=== PATIENT | female | born 1950 | race Caucasian/White ===

== ENCOUNTER 2018-07-25 00:08 | Outpatient (CLI) | payer MEDICARE, OTHER, SELFPAY ==
--- NOTE | 2018-07-25 10:00 | DI.MAMMO_ITS ---
SYMPTOM/DIAGNOSIS: SCREENING, PERSONAL H/O BREAST CA, Z85.3 MAMMOGRAMS: Mammograms were interpreted according to the usual protocol including computer analysis with CAD system, tomosynthesis and C view imaging. The patient has a history of right breast cancer. Comparison is made with exams from [id number]. Scarring is again noted in the upper outer quadrant of the right breast. Spot compression views were performed of the upper outer quadrant. Stable scarring is seen. No suspicious masses or suspicious microcalcifications are seen in either breast. There has been no change in either breast. The breasts are composed of scattered fibroglandular densities, breast density, Category B. IMPRESSION: Category 2B, negative mammogram with benign findings. Yearly screening mammography is recommended. SA ASSESSMENT OF FINDINGS: Negative with benign findings. Category 2. Patient will receive a letter notifying them of these results. BI-RADS category B. There are scattered areas of fibroglandular density.
== END 2018-07-25 00:28 ==
PROVIDERS: PCP Family Medicine; Visit Provider Family Medicine
DX: Z85.3 Personal history of malignant neoplasm of breast (principal); Z12.31 Encounter for screening mammogram for malignant neoplasm of breast
CPT/HCPCS: 77063; 77067

== ENCOUNTER 2018-07-25 09:14 | Outpatient (REF) | payer MEDICARE, OTHER, SELFPAY ==
[2018-07-25 13:38] LABS: HCT 43.5 % (36.0-46.0); HGB 14.9 g/dL (12.0-15.5); Mean Corp. HGB Concentration 34.3 g/dL (32.0-36.0); Mean Corpuscular Hemoglobin 32.7 pg (27.0-33.0); Mean Corpuscular Volume 95.6 fL (80-95); Mean Platelet Volume 11.7 fL (8.0-11.0); Platelet Count 194 x1000/uL (130-400); RBC 4.55 m/cumm (4.00-5.20); RBC Distribution Width 12.9 % (11.7-14.6); White Blood Cell Count 5.36 k/cumm (4.4-10.8)
[2018-07-25 13:46] LABS: Anion Gap 4.8 mmol/L (3-11); BUN 15 mg/dL (7-18); CO2 33.2 mmol/L (21.0-32.0); CREATININE 0.76 mg/dL (0.55-1.02); Calcium 8.9 mg/dL (8.5-10.1); Chloride 106 mmol/L (98-107); Glucose 90 mg/dL (70-100); Potassium 3.8 mmol/L (3.5-5.1); Sodium 144 mmol/L (136-145)
== END 2018-07-25 09:34 ==
LOC: NCHCN 09:14
PROVIDERS: PCP Family Medicine; Visit Provider Family Medicine
DX: Z85.3 Personal history of malignant neoplasm of breast (principal)
CPT/HCPCS: 80048; 85027

== ENCOUNTER 2019-07-26 00:52 | Outpatient (CLI) | payer MEDICARE, OTHER, SELFPAY ==
[2019-07-26 13:25] LABS: HCT 44.5 % (36.0-46.0); HGB 15.1 g/dL (12.0-15.5); Mean Corp. HGB Concentration 33.9 g/dL (32.0-36.0); Mean Corpuscular Hemoglobin 32.5 pg (27.0-33.0); Mean Corpuscular Volume 95.7 fL (80-95); Mean Platelet Volume 11.9 fL (8.0-11.0); Platelet Count 210 x1000/uL (130-400); RBC 4.65 m/cumm (4.00-5.20); RBC Distribution Width 13.2 % (11.7-14.6); White Blood Cell Count 5.95 k/cumm (4.4-10.8)
[2019-07-26 13:34] LABS: ALT 32 U/L (14-59); AST 25 U/L (15-37); Albumin 3.6 g/dL (3.4-5.0); Alkaline Phosphatase 69 U/L (46-116); Anion Gap 1.6 mmol/L (3-11); BUN 15 mg/dL (7-18); Bilirubin, Total 0.6 mg/dL (0.2-1.0); CO2 35.4 mmol/L (21.0-32.0); Calcium 9.1 mg/dL (8.5-10.1); Chloride 106 mmol/L (98-107); Glucose 103 mg/dL (74-106); Sodium 143 mmol/L (136-145); Total Protein 7.2 g/dL (6.4-8.2)
--- NOTE | 2019-07-26 13:45 | DI.MAMMO_ITS ---
EXAM: MG MAMMO SCREENING 60 MIN DUR CLINICAL HISTORY: SCREENING, H/O BREAST CA, TAMOXIFEN X 5 YEARS, Z85.3. TECHNIQUE: Full field digital CC and MLO mammographic images were obtained with 3D tomosynthesis and utilizing computer aided detection (CAD). COMPARISON: . 2009 through 2018. FINDINGS: Breast Density - Category B - Scattered areas of fibroglandular density Right breast: Patient is again noted to be status post lumpectomy and radiation. Mild breast scarrin g is noted. No suspicious masses or suspicious microcalcifications are seen. There has been no sign ificant change. Left breast: Masses/Architectural Distortion: None seen. Microcalcifications: No suspicious pleomorphic-type calcifications are seen. Skin Thickening/Nipple Retraction: None. Axilla: Unremarkable. IMPRESSION: 1. BI-RADS Cat 2 - Benign Findings. No significant interval change with no specific features of sana gnancy noted. 2. Unless there is more urgent need, screening mammography is recommended, as per [place] guidelines. A negative radiographic report should not delay biopsy if a dominant or clinically suspicious mass is present. Up to ten percent of cancers are not identified on mammography. A negative report may reinforce clinical impression. Adenosis and dense breasts may obscure an underlying neoplasm. False positive reports average 6 to 10%. Patient will receive a letter notifying them of these results.
== END 2019-07-26 01:12 ==
PROVIDERS: PCP Family Medicine; Visit Provider Family Medicine
DX: Z12.31 Encounter for screening mammogram for malignant neoplasm of breast (principal); Z85.3 Personal history of malignant neoplasm of breast; Z92.3 Personal history of irradiation; Z79.899 Other long term (current) drug therapy
CPT/HCPCS: 77063; 77067; 80053; 85027

== ENCOUNTER 2019-08-27 21:51 | Outpatient (REF) | payer MEDICARE, OTHER, SELFPAY ==
--- NOTE | 2019-08-27 14:52 | SKI_PTH ---
PATIENT: Loli May LOC: N U#:[id number] AGE/SX: 68/F ROOM: RE08/27/[address]: Rich Rizvi DO : 1950 BED: DIS: 08/27/2019 SPEC #: [id number] RECD: 08/28/19 11:37 STATUS: SHARRI REQ #: [id number] BACILIO: 08/27/19 14:[address]: Rich Rizvi DEPT: Surgical Specimen RECD BY: Melvina Lewis ENTERED: 08/28/19 11:38 SP TYPE: HAIR BALLARD DR: Yue Parham Tissues: 1 - SKIN BIOPSY(SHAVE/PUNCH) Procedures: SKIN LEVEL 4 Comments: [id number]
== END 2019-08-27 22:11 ==
LOC: LBN 21:51
PROVIDERS: PCP Family Medicine; Visit Provider Otolaryngology Otolaryngology/Facial Plastic Surgery
DX: L57.0 Actinic keratosis (principal)
CPT/HCPCS: 88305

== ENCOUNTER 2020-07-31 13:55 | Outpatient (REF) | payer MEDICARE, OTHER, SELFPAY ==
[2020-07-31 15:57] LABS: Abs Immature Grans 0.01 10^3/uL (0.0-0.06); Absolute Basophil Count 0.06 10^3/uL (0.0-0.2); Absolute Eosinophil Count 0.24 10^3/uL (0.0-0.7); Absolute Lymphocyte Count 1.75 10^3/uL (1.2-3.4); Absolute Monocyte Count 0.45 10^3/uL (0.1-0.8); Absolute Neutrophil Count 3.94 10^3/uL (1.2-6.7); Basophils % 0.9; Eosinophils % 3.7; HCT 43.7 % (36.0-46.0); HGB 14.8 g/dL (11.2-15.7); Immature Grans % 0.2; Lymphocytes % 27.1; MCH 33.3 pg (27.0-33.0); MCHC 33.9 % (32.0-36.0); MCV 98.4 fL (80-95); MPV 11.3 fL (8.0-11.0); Neutrophils % 61.1; Nucleated RBC 0 %; Platelet Count 224 10^3/uL (130-400); RBC 4.44 10^6/uL (3.93-5.22); RDW 12.7 % (11.7-14.6); RDW-SD 45.1 fL; WBC 6.45 10^3/uL (4.4-10.8)
[2020-07-31 16:14] LABS: ALT 42 U/L (14-59); AST 34 U/L (15-37); Albumin 3.7 g/dL (3.4-5.0); Alkaline Phosphatase 77 U/L (46-116); Anion Gap 3.9 mmol/L (3-11); BUN 16 mg/dL (7-18); Bilirubin, Total 0.7 mg/dL (0.2-1.0); CO2 33.1 mmol/L (21.0-32.0); Chloride 107 mmol/L (98-107); Glucose 105 mg/dL (74-106); Potassium 4.1 mmol/L (3.5-5.1); Sodium 144 mmol/L (136-145); Total Protein 7.4 g/dL (6.4-8.2)
[2020-07-31 16:35] LABS: Hemoglobin A1C 4.9 % (<5.7)
== END 2020-07-31 14:15 ==
LOC: NCHCN 13:55
PROVIDERS: PCP Family Medicine; Visit Provider Family Medicine
DX: R73.01 Impaired fasting glucose (principal); Z85.3 Personal history of malignant neoplasm of breast
CPT/HCPCS: 80053; 83036; 85025

== ENCOUNTER 2020-08-28 01:13 | Outpatient (CLI) | payer MEDICARE, OTHER, SELFPAY ==
--- NOTE | 2020-08-28 09:24 | DI.MAMMO_ITS ---
EXAM: MG MAMMO SCREENING 60 MIN DUR CLINICAL HISTORY: SCREENING,Z85.3,PERSONAL H/O BREAST CA,ON TAMOXIFEN. TECHNIQUE: Bilateral full field digital CC and MLO mammographic images were obtained with 3D tomosyn thesis and utilizing computer aided detection (CAD). COMPARISON: Prior mammograms dating back to 2010, the most recent being July 2019. This patient went remote right lumpectomy with radiation therapy over 20 years ago. FINDINGS: Postlumpectomy changes in the right breast remain stable. No new right breast findings. The also no new significant left breast findings. There are no spiculated masses nor malignant appearing microcalcification groups. There is no signif icant architectural distortion nor skin thickening-retraction. IMPRESSION: No radiographic evidence of malignancy. Stable post lumpectomy changes in the right breast again note d BI-RADS Category 2 - Benign Findings Breast Density - Category B - Scattered areas of fibroglandular density Breast density Category C or D implies that the patient has dense breast tissue. Dense breast tissue can make it harder to find cancer on a mammogram. Dense breast tissue is also associated with an incr eased risk of breast cancer. This information about the result of the mammogram report was provided to the patient to raise their awareness. Use this report when you speak with the patient about their risks for breast cancer, which includes their family history. At that time, you may recommend additional screening tests (Ultrasoun d or MRI) as these tests may add significant information. A negative radiographic report should not delay biopsy if a dominant or clinically suspicious mass is present. Up to ten percent of cancers are not identified on mammography. A negative report may reinforce clinical impression. Adenosis and dense breasts may obscure an underlying neoplasm. False positive reports average 6 to 10%. Patient will receive a letter notifying them of these results.
== END 2020-08-28 01:14 ==
LOC: DI 01:13
PROVIDERS: PCP Family Medicine; Visit Provider Family Medicine
DX: Z12.31 Encounter for screening mammogram for malignant neoplasm of breast (principal); Z85.3 Personal history of malignant neoplasm of breast
CPT/HCPCS: 77063; 77067

== ENCOUNTER 2021-04-01 10:03 | Outpatient (REF) | payer MEDICARE, SELFPAY ==
[2021-04-01 14:58] LABS: ALT 37 U/L (14-59); AST 25 U/L (15-37); Alkaline Phosphatase 70 U/L (46-116); Anion Gap 8.2 mmol/L (3-11); BUN 14 mg/dL (7-18); Bilirubin, Total 0.8 mg/dL (0.2-1.0); CO2 30.8 mmol/L (21.0-32.0); CREATININE 0.8 mg/dL (0.55-1.02); Calcium 9.2 mg/dL (8.5-10.1); Chloride 104 mmol/L (98-107); Folate 6.4 ng/mL (8.6-20.0); Glucose 105 mg/dL (74-106); Sodium 143 mmol/L (136-145); TSH (W/Ref FT4) 1.73 uIU/mL (0.36-3.74); Total Protein 7.9 g/dL (6.4-8.2); Vitamin B12 322 pg/mL (193-986)
[2021-04-02 10:10] LABS: Syphilis Serology (RPR) Negative (Negative)
== END 2021-04-01 10:04 | disposition home or self-care (01) ==
LOC: NCHCN 10:03
PROVIDERS: PCP Family Medicine; Visit Provider Family Medicine
DX: R41.3 Other amnesia (principal)
CPT/HCPCS: 80053; 82607; 82746; 84443; 86592

== ENCOUNTER 2021-04-15 01:39 | Outpatient (CLI) | payer MEDICARE, SELFPAY ==
--- NOTE | 2021-04-15 10:10 | DI.MRI_ITS ---
Exam(s) MR BRAIN WO EXAM: MR BRAIN WO CLINICAL HISTORY: MEMORY DEFICIT,R41.3 TECHNIQUE: Multiplanar multisequence MRI of the brain was performed. COMPARISON: No exams were available for comparison FINDINGS: VENTRICLES AND EXTRA AXIAL SPACES: Normal in size and morphology for the patient's age. MIDLINE SHIFT: None. CEREBRAL PARENCHYMA: No focus of restricted diffusion to suggest acute infarct. No space-occupying le ashley identified. There are areas of T2 hyperintensity in the white matter on the FLAIR and T2 weighte d images most consistent with chronic microvascular ischemic disease. HEMORRHAGE: None. BRAINSTEM/CEREBELLUM: Normal. CALVARIUM: Normal. VISUALIZED PARANASAL SINUSES/MASTOIDS:Clear. [place]: Normal flow void. PITUITARY GLAND: Unremarkable. OTHER FINDINGS: None. IMPRESSION: Age-related cerebral atrophy and small vessel ischemic disease. DATA REPOSITORY:
== END 2021-04-15 01:59 ==
PROVIDERS: PCP Family Medicine; Visit Provider Family Medicine
DX: R41.3 Other amnesia (principal); G31.1 Senile degeneration of brain, not elsewhere classified
CPT/HCPCS: 70551

== ENCOUNTER 2021-05-27 13:42 | Outpatient (REF) | payer MEDICARE, OTHER, SELFPAY ==
[2021-05-27 14:44] LABS: HCT 41.6 % (36.0-46.0); HGB 14.8 g/dL (11.2-15.7); MCH 34.6 pg (27.0-33.0); MCHC 35.6 % (32.0-36.0); MCV 97.2 fL (80-95); MPV 11.5 fL (8.0-11.0); Platelet Count 208 10^3/uL (130-400); RBC 4.28 10^6/uL (3.93-5.22); RDW 12.2 % (11.7-14.6); RDW-SD 42.2 fL; WBC 6.08 10^3/uL (4.4-10.8)
[2021-05-27 15:03] LABS: Hemoglobin A1C 4.9 % (<5.7)
[2021-05-27 15:26] LABS: BUN 12 mg/dL (7-18); CREATININE 0.7 mg/dL (0.55-1.02); Calcium 9.2 mg/dL (8.5-10.1); Chloride 105 mmol/L (98-107); Folate > 20.0 ng/mL (8.6-20.0); Glucose 109 mg/dL (74-106); Potassium 3.8 mmol/L (3.5-5.1); Sodium 145 mmol/L (136-145); Vitamin B12 632 pg/mL (193-986)
== END 2021-05-27 13:43 | disposition home or self-care (01) ==
LOC: NCHCN 13:42
PROVIDERS: PCP Family Medicine; Visit Provider Family Medicine
DX: R73.03 Prediabetes (principal); D53.1 Other megaloblastic anemias, not elsewhere classified; Z85.3 Personal history of malignant neoplasm of breast
CPT/HCPCS: 80048; 85027; 82607; 82746; 83036

== ENCOUNTER → 2021-09-10 08:32 | Outpatient (BNVA) | payer MEDICARE, OTHER, SELFPAY | PROVIDERS: PCP Family Medicine; Referring Provider Family Medicine; Visit Provider Nurse Practitioner Adult Health | DX: R41.89 Other symptoms and signs involving cognitive functions and awareness (principal) | CPT/HCPCS: 99204 ==

== ENCOUNTER → 2021-09-24 14:01 | Outpatient (BNVA) | payer MEDICARE, OTHER, SELFPAY | PROVIDERS: PCP Family Medicine; Referring Provider Family Medicine; Visit Provider Nurse Practitioner Adult Health | DX: G30.9 Alzheimer's disease, unspecified (principal); F02.80 Dementia in other diseases classified elsewhere, unspecified severity, without behavioral disturbance, psychotic disturbance, mood disturbance, and anxiety | CPT/HCPCS: 99213; 99214 ==

== ENCOUNTER 2021-10-01 02:26 | Outpatient (CLI) | payer MEDICARE, OTHER, SELFPAY ==
--- NOTE | 2021-10-01 | DI.MAMMO_ITS ---
Exam(s) MG MAMMO SCREENING 60 MIN DUR EXAM: MG MAMMO SCREENING 60 MIN DUR CLINICAL HISTORY: HX OF BREAST CA, XRT, TAMOXIFEN X 5 YRS, Z85.3 TECHNIQUE: Bilateral full field digital CC and MLO mammographic images were obtained with 3D tomosyn thesis and utilizing computer aided detection (CAD). COMPARISON: Available for comparison. FINDINGS: Masses/Architectural Distortion: None seen. Lumpectomy changes are again seen in the right breast. Microcalcifications: No suspicious pleomorphic-type are seen. Skin Thickening/Nipple Retraction: None. IMPRESSION: 1. No significant interval change with no specific features of malignancy noted. 2. Unless there is more urgent need, screening mammography is recommended, as per [employer] guidelines. 3. Findings were discussed with the patient on the date of the examination. BI-RADS Category 2 - Benign Findings Breast Density - Category B - Scattered areas of fibroglandular density Breast density category C or D implies that the patient has dense breast tissue. Dense breast tissue is very common and is not abnormal but dense breast tissue can make it harder to find cancer on a ma mmogram. Also, dense breast tissue may increase their breast cancer risk. This information about the result of the mammogram report was provided to the patient to raise their awareness. Use this report when you speak with the patient about their risks for breast cancer, which includes their family hist ory. At that time, you may recommend for more screening tests (Ultrasound or MRI) as they might be us eful based on their risk. A negative radiographic report should not delay biopsy if a dominant or clinically suspicious mass is present. Up to ten percent of cancers are not identified on mammography. A negative report may reinforce clinical impression. Adenosis and dense breasts may obscure an underlying neoplasm. False positive reports average 6 to 10%. Patient will receive a letter notifying them of these results.
--- NOTE | 2021-10-01 | DI.DEXA_ITS ---
Exam(s) XR DEXA BONE DENSITY W/WO NIKUNJ EXAM: XR DEXA BONE DENSITY W/WO NIKUNJ CLINICAL HISTORY: HX OF BREAST CA, XRT, TAMOXIFEN X 5 YRS, POSTMENOPAUSAL SCREENING, Z78.0 TECHNIQUE: COMPARISON: Comparison examination is 08/23/2017. FINDINGS: Lateral Spine Image: Unremarkable. No compression deformities identified. Left hip: Total T-Score: -2.4. This compares to -1.9 on the prior examination. Total Z-Score: -0.8 T- and Z-scores: Findings are consistent with osteopenia. Osteoporosis is seen in the femoral neck w ith a T-score of -2.5. Lumbar Spine: Total T-Score: 0.4. This compares to 0.2 on the prior examination. Total Z-Score: 2.5 T- and Z-scores: Within normal limits. IMPRESSION: Osteoporosis seen in the left femoral neck.
== END 2021-10-01 02:46 ==
PROVIDERS: PCP Family Medicine; Visit Provider Family Medicine
DX: Z78.0 Asymptomatic menopausal state (principal); Z13.820 Encounter for screening for osteoporosis; M81.0 Age-related osteoporosis without current pathological fracture
CPT/HCPCS: 77063; 77067; 77080

== ENCOUNTER 2021-10-08 17:56 | Outpatient (REF) | payer MEDICARE, OTHER, SELFPAY ==
[2021-10-08 13:48] LABS: PHOSPHORUS 3.9 mg/dL (2.6-4.7)
[2021-10-08 15:02] LABS: Vitamin D 25 Total 33.9 ng/mL (30-100)
[2021-10-09 09:40] LABS: Parathyroid Hormone,Intact 56 pg/mL (19-88)
[2021-10-09 10:08] LABS: Hepatitis C Ab w Rflx HCV PCR Reactive (Negative)
[2021-10-12 12:37] LABS: HCV RNA Detection Quantitative 2020000 IU/mL (Undetected); HCV RNA Qualitative Detected (Undetected)
== END 2021-10-08 17:57 | disposition home or self-care (01) ==
LOC: NCHCN 17:56
PROVIDERS: PCP Family Medicine; Visit Provider Family Medicine
DX: M81.0 Age-related osteoporosis without current pathological fracture (principal); Z11.59 Encounter for screening for other viral diseases
CPT/HCPCS: 82306; 86803; 87522; 83970; 84100

== ENCOUNTER 2021-10-20 18:53 | Outpatient (REF) | payer MEDICARE, OTHER, SELFPAY ==
[2021-10-22 09:32] LABS: HBs Antibody, Quant 7.1 mIU/mL (See Note); Hepatitis B Surface Ab Negative (See Note)
[2021-10-22 09:45] LABS: Hepatitis B Surface Ag Negative (Negative)
[2021-10-22 10:13] LABS: Hep B Core Antibody Negative (Negative)
[2021-10-22 10:16] LABS: HIV-1/2 Ag & Ab Screen Negative (Negative)
[2021-10-22 10:20] LABS: Hep A Total Ab w Rflx IgM Negative (Negative)
[2021-10-23 09:26] LABS: ALT 27 U/L (7-45); ActiTest Grade A0; ActiTest Interpretation no activity; ActiTest Score 0.16; Alpha-2-Macroglobulin 368 mg/dL (100 - 280); Apoliprotein A1 202 mg/dL (>=140); Bilirubin, Total 0.8 mg/dL (<=1.2); FibroTest Interpretation moderate fibrosis; FibroTest Stage F2; GGT 39 U/L (5 - 36); Haptoglobin 134 mg/dL (30 - 200)
[2021-10-24 17:28] LABS: HCV Genotype 1a (Undetected)
== END 2021-10-20 18:54 | disposition home or self-care (01) ==
LOC: NCHCN 18:53
PROVIDERS: PCP Family Medicine; Visit Provider Family Medicine
DX: B19.20 Unspecified viral hepatitis C without hepatic coma (principal); Z11.4 Encounter for screening for human immunodeficiency virus [HIV]
CPT/HCPCS: 81596; 86704; 86706; 86709; 87340; 87389; 87521

== ENCOUNTER 2021-11-04 19:11 | Outpatient (REF) | payer MEDICARE, OTHER, SELFPAY ==
[2021-11-04 13:50] LABS: HCT 41.4 % (36.0-46.0); HGB 14.8 g/dL (11.2-15.7); MCH 35.7 pg (27.0-33.0); MCHC 35.7 % (32.0-36.0); MCV 99.8 fL (80-95); MPV 11.4 fL (8.0-11.0); Platelet Count 191 10^3/uL (130-400); RBC 4.15 10^6/uL (3.93-5.22); RDW 12.9 % (11.7-14.6); RDW-SD 42.8 fL; WBC 6.58 10^3/uL (4.4-10.8)
[2021-11-04 14:01] LABS: ALT 35 U/L (14-59); AST 27 U/L (15-37); Albumin 3.8 g/dL (3.4-5.0); Alkaline Phosphatase 70 U/L (46-116); Anion Gap 6.1 mmol/L (3-11); BUN 13 mg/dL (7-18); Bilirubin, Total 0.7 mg/dL (0.2-1.0); CO2 29.9 mmol/L (21.0-32.0); CREATININE 0.7 mg/dL (0.55-1.02); Chloride 104 mmol/L (98-107); Glucose 99 mg/dL (74-106); Sodium 140 mmol/L (136-145); Total Protein 7.3 g/dL (6.4-8.2)
== END 2021-11-04 19:12 | disposition home or self-care (01) ==
LOC: NCHCN 19:11
PROVIDERS: PCP Family Medicine; Visit Provider Family Medicine
DX: B18.2 Chronic viral hepatitis C (principal)
CPT/HCPCS: 80053; 85027

== ENCOUNTER → 2021-11-09 00:58 | Outpatient (CLI) | payer MEDICARE, OTHER, SELFPAY ==
--- NOTE | 2021-11-09 | DI.US_ITS ---
Exam(s) US ABDOMEN EXAM: US ABDOMEN CLINICAL HISTORY: CHRONIC HEP C, B18.2 TECHNIQUE: Ultrasound abdomen performed using standard protocol. COMPARISON: No exams were available for comparison FINDINGS: LIVER: Normal size and overall echogenicity. There are multiple uniform hyperechoic lesions seen thr oughout the liver which are similar in size, 1-2 cm. The findings could represent multiple hemangio mas, metastatic disease or multifocal HCC. An additional simple cyst is noted measuring 3.5 cm. GALLBLADDER: No evidence of stones or sludge. No evidence of wall thickening. No pericholecystic flu id identified. CLARK'S SIGN: Negative. BILIARY SYSTEM: No intrahepatic or extrahepatic biliary ductal dilation. KIDNEYS: Kidneys are symmetric in size. No evidence of renal calculi. No evidence of hydronephrosis. No renal mass or cyst identified. PANCREAS: Normal where visualized. SPLEEN: Not enlarged. ABDOMINAL AORTA AND IVC: Visualized portions normal caliber. ASCITES: None seen. IMPRESSION: Multiple hyperechoic lesions throughout the liver may represent multiple hemangiomas, metastatic dise ase or multifocal hepatocellular carcinoma. DATA REPOSITORY:
== END ==
PROVIDERS: PCP Family Medicine; Visit Provider Family Medicine
DX: B18.2 Chronic viral hepatitis C (principal); K76.89 Other specified diseases of liver
CPT/HCPCS: 76700

== ENCOUNTER → 2021-11-24 10:59 | Outpatient (BNVA) | payer MEDICARE, OTHER, SELFPAY | PROVIDERS: PCP Family Medicine; Referring Provider Family Medicine; Visit Provider Nurse Practitioner Adult Health | DX: G30.9 Alzheimer's disease, unspecified (principal); F02.80 Dementia in other diseases classified elsewhere, unspecified severity, without behavioral disturbance, psychotic disturbance, mood disturbance, and anxiety | CPT/HCPCS: 99213; 99214 ==

== ENCOUNTER 2021-12-14 10:03 | Outpatient (REF) | payer MEDICARE, OTHER, SELFPAY ==
[2021-12-14 16:42] LABS: HCT 43.2 % (36.0-46.0); HGB 15.8 g/dL (11.2-15.7); MCHC 36.6 % (32.0-36.0); MCV 98 fL (80-95); Platelet Count 195 10^3/uL (130-400); RBC 4.39 10^6/uL (3.93-5.22); RDW 12.8 % (11.7-14.6); RDW-SD 41.3 fL; WBC 6.32 10^3/uL (4.4-10.8)
[2021-12-14 17:01] LABS: ALT 19 U/L (14-59); AST 18 U/L (15-37); Albumin 4.3 g/dL (3.4-5.0); Alkaline Phosphatase 89 U/L (46-116); Anion Gap 11.2 mmol/L (3-11); BUN 15 mg/dL (7-18); Bilirubin, Total 0.8 mg/dL (0.2-1.0); CO2 29.8 mmol/L (21.0-32.0); CREATININE 0.8 mg/dL (0.55-1.02); Calcium 9.4 mg/dL (8.5-10.1); Chloride 102 mmol/L (98-107); Glucose 104 mg/dL (74-106); Potassium 3.7 mmol/L (3.5-5.1); Sodium 143 mmol/L (136-145); Total Protein 7.9 g/dL (6.4-8.2)
[2021-12-16 14:07] LABS: HCV RNA Detection Quantitative <15 IU/mL (Undetected); HCV RNA Qualitative Detected (Undetected)
== END 2021-12-14 10:04 | disposition home or self-care (01) ==
LOC: NCHCN 10:03
PROVIDERS: PCP Family Medicine; Visit Provider Family Medicine
DX: B18.2 Chronic viral hepatitis C (principal)
CPT/HCPCS: 80053; 85027; 87522

== ENCOUNTER 2021-12-28 14:19 | Outpatient (REF) | payer MEDICARE, OTHER, SELFPAY ==
[2021-12-30 12:51] LABS: HCV RNA Qualitative Undetected (Undetected)
== END 2021-12-28 14:20 | disposition home or self-care (01) ==
LOC: NCHCN 14:19
PROVIDERS: PCP Family Medicine; Visit Provider Family Medicine
DX: B18.2 Chronic viral hepatitis C (principal)
CPT/HCPCS: 87522

== ENCOUNTER 2022-02-19 10:30 | Day surgery (SDC) | payer MEDICARE, OTHER, SELFPAY ==
[2022-02-19 10:50] VITALS: BP 145/95; PULSE 58; RESP 16; TEMP 36.6; O2SAT 99
[2022-02-19] MEDS: Tropicam./Phenyleph. (1/2.5%) 5 ML BTL OD ×3 (11:04→11:14)
--- NOTE | 2022-02-19 11:23 | W.ANESPRE ---
General Info Date of Service Date Performed: 02/19/22 Height: 5 ft 2 in Weight: 52.6 kg Body Mass Index (BMI): 21.2 Surgical Procedure: Operation Date: 02/19/22 13:40 Proposed Procedure Side Surgeon p Cataract Extraction with IOL Implant Right Francisco J Perry MD Meds Allergies and Home Medications Allergies Allergy/AdvReac Type Severity Reaction Status Date / Time No Known Allergies Allergy Verified 02/19/22 10:47 Home Medication Medication Instructions Recorded cyanocobalamin (vitamin B-12) 1,000 mcg PO DAILY 09/09/21 1,000 mcg tablet (Vitamin B-12) folic acid 1 mg tablet 1 mg PO DAILY 09/09/21 omega-3 417 mg-dha 120 mg-epa-276 cap PO 09/10/21 mg-fish oil 600 mg-tumeric capsule ([place] MonoPure Curcumin EC) vit C 250 mg-E 90 mg-zinc 40 1 tab PO QAM AND QPM 09/10/21 mg-copper 1 rz-sbhttb-vwskgo chew tablet (PreserVision AREDS-2) donepezil 10 mg tablet 10 mg PO QHS #90 tabs 11/24/21 mirtazapine 7.5 mg tablet 1 tab PO HS 02/17/22 Current Visit Medications: Current Medications Generic Name Dose Route Start Last Admin Trade Name Freq PRN Reason Stop Dose Admin Acetaminophen 1,000 mg 02/19/22 06:00 Acetaminophen 500 Mg Tab PO Q4H PRN PRN Miscellaneous Medication 0 ml 02/19/22 06:00 Prednisolone 1%, Moxifloxacin 0.5%, Nepafenac 0.1% 5ml Btl OD DIRECTED [facility] Miscellaneous Medication 0 ml 02/19/22 06:00 02/19/22 11:14 Tropicam./Phenyleph. (1/2.5%) 5 Ml Btl OD 1 drp DIRECTED CAROLE Administration Tetracaine HCl 0 ml 02/19/22 06:00 Tetracaine 0.5% 4 Ml Btl OD DIRECTED CAROLE PFSH Active Problems Active Problems: Problem Status Onset Code [place] hemangioma Q82.5 Neoplasm of unspecified behavior of bone, soft tissue, and skin D49.2 Actinic keratoses L57.0 Cognitive impairment R41.89 Alzheimer's dementia G30.9, F02.80 Medical History Medical History Anemia Vitamin B12 and folate deficiency Cataract ZULY (generalized anxiety disorder) Hepatitis C without hepatic coma s/p recent treatment, RNA in December. Repeat RNA level pending 03/2022 Hx of breast cancer Liver mass MRI pending 04/01 Osteoporosis Prediabetes Surgical History Surgical History (Updated 02/19/22 @ 10:46 by Federico Millard) History of liver biopsy Tobacco Smoking/Tobacco Use Status: Never Alcohol Alcohol Intake: current Alcohol intake frequency: 0-2 drinks per day Substance Use Substance use: Never Vital Signs and Lab Results Vital Signs Most Recent Vital Signs in EMR: Most Recent Vital Signs Temp Pulse Resp BP Pulse Ox 36.6 C 58 L 16 145/95 H 99 02/19/22 10:50 02/19/22 10:50 02/19/22 10:50 02/19/22 10:50 02/19/22 10:50 Lab Results Blood Type / Crossmatch: No Data to Display Complete Blood Count: No Data to Display Complete Metabolic Panel: No Data to Display Liver Function Panel: No Data to Display Coagulation Panel: No Data to Display Cardiac Panel: No Data to Display Arterial Blood Gas: No Data to Display Venous Blood Gas: No Data to Display Pancreas Panel: No Data to Display Thyroid Panel: No Data to Display Infectious Disease: No Data to Display Blood Cultures: No Data to Display Toxicology Panel: No Data to Display Anesthesia Assessment and Plan Anesthesia History Personal History: No History of Anesthesia Complications Family History: No Family History of Anesthesia Complications Exercise Tolerance Exercise Tolerance: Metabolic Equivalents>4 Pertinent Negatives Pertinent Negatives: No Major Cardiovascular Symptoms or Complaints, No Major Pulmonary Symptoms or Complaints and No History of CVA/TIA Cardiac & Pulmonary Exam Cardiac Exam: Normal S1/S2 Heart Sounds Pulmonary Exam: Clear Bilateral Breath Sounds Implantable Cardiac Device Does patient have a Pacemaker or an ICD?: No Airway Exam Known Difficult Airway: No Mallampati Class: 2 Mouth Opening: Normal (> 3cm) Thyromental Distance: Greater than 3 cm Neck Range of Motion: Full ROM Neck Circumference: Normal Teeth Condition: Normal Dentition ASA Classification ASA Score: ASA 2 Emergency Case?: No NPO Status NPO Status: NPO Clears >2 hours, Solids >8 hours Anesthesia Plan Resuscitation Status: Full Code Anesthesia Technique: MAC Anesthesia Airway Planned: Natural Airway Monitors Used: Standard Monitors
[2022-02-19 11:39] VITALS: BMI 21.2
[2022-02-19] MEDS: Tetracaine 0.5% 4 ML BTL OD (11:55)
[2022-02-19] MEDS: Balanced Salt Soln.-PLUS 500 ML BAG (11:58)
[2022-02-19] MEDS: Duovisc Viscoelastic System EACH 1 EACH (11:59)
[2022-02-19] MEDS: Povidone-Iodine Ophth 30 ML BTL (12:00)
[2022-02-19] MEDS: Lidocaine 2% Jelly 6 ML SYR (12:00)
[2022-02-19] MEDS: Trypan Blue 0.06% 0.5 ML SYR (12:01)
[2022-02-19 12:25] VITALS: BP 147/80; PULSE 60; RESP 16; TEMP 36.4; O2SAT 100
--- NOTE | 2022-02-19 12:26 | W.PM.DSUDISC ---
Discharge Plan Disposition Patient Disposition: HOME Condition: Good Discharge Details Attending Provider: Francisco J Perry Primary Care Provider: Yue Parham Home Meds and New Rx's Prescriptions: No Action cyanocobalamin (vitamin B-12) [Vitamin B-12] 1,000 mcg tablet 1,000 mcg PO DAILY folic acid 1 mg tablet 1 mg PO DAILY [place] MonoPure Curcumin EC 417 mg-120 mg- 276 mg-600 mg capsule PO PreserVision AREDS-2 250-90-40-1 mg tablet,chewable 1 tab PO QAM AND QPM donepezil 10 mg tablet 10 mg PO QHS Qty: 90 3RF mirtazapine 7.5 mg tablet 1 tab PO HS Label Comments: TAKE 1 TABLET BY MOUTH DAILY AT BEDTIME (TO REPLACE SERTRALINE) Discharge Instructions Stand Alone Forms: Post-op Topical Cataract, Rachele Bruce ([facility]) Discharge Orders Discharge Orders: Discharge Order (Routine); Ordered 02/19/22 Ordered By: Francisco J Perry DS: Diagnosis Discharge Diagnosis (1) Mature cataract: Status: Resolved
--- NOTE | 2022-02-19 12:27 | W.PM.OP ---
Date of service: 02/19/22 Time of Service: 12:27 Operative Note Operative Note DATE OF PROCEDURE: 02/19/22 PRE-OP DIAGNOSIS: Dense mature cataract, right eye Absent red reflex, right eye POST-OP DIAGNOSIS: same Severe generalized and localized zonular laxity. PROCEDURE: Cataract extraction using phacoemulsification with intraocular lens implantation, right eye, using capsular staining with Vision Blue Insertion of capsular tension ring SURGEON: Francisco J Perry ANESTHESIA TYPE: Local By Surgeon and MAC Refer to Anesthesia Record PATHOLOGY: none sent COMPLICATIONS: None Patient was transported to: same day Patient's condition: stable Implants: Manuel [employer] Manuel / [employer] Tecnis [id number] Morcher Type 15A capsular tension ring Indications: Progressive visual loss due to cataract, right eye Findings: Severe generalized and localized zonular laxity Procedure Description: CATARACT SURGERY OPERATIVE REPORT PREOPERATIVE DIAGNOSIS: 1. Dense mature cataract, right eye 2. Poor red reflex secondary to #1 POSTOPERATIVE DIAGNOSIS: Same OPERATION: 1. Cataract extraction using phacoemulsification with posterior chamber intraocular lens implant, right eye. 2. Capsular staining with Vision Blue 3. Insertion of Morcher Type 15A capsular tension ring IOL: IOL Tour Conductor/Model: Manuel & Manuel / JANETH Tecnis [id number] IOL Power: + 20.5 diopters IOL Serial Number: [id number] Optic Diameter: 6.0mm Haptic/Overall Diameter: 13.0mm PHACO INFO: Nadir [employer]ion Vision System with OZil and Active Fluidics Cumulative Dispersed Energy (CDE): 30.28 seconds SURGEON: Francisco J Perry MD, JUSTEN ANESTHESIA: Monitored Anesthesia Care (MAC), with local sub-tenon's anesthetic infiltration COMPLICATIONS: None SPECIMENS: None INDICATIONS FOR PROCEDURE: The patient is a 71-year-old lady with history of diminished visual acuity in her right eye. She is noted to have a dense mature white cataract with dense central brunescent. Visual acuity is light perception. The option of cataract surgery was offered to the patient and she wished to proceed. PROCEDURE: The correct surgical eye was identified and marked as the right eye and the pupil was dilated in the preoperative area using mydriatics and cycloplegics. The dilated pupil size was 7.0 mm. The patient elected to proceed without oral sedation. The patient was brought to the operating room where cardiopulmonary monitoring was instituted and surgical time-out was performed, confirming the correct operative eye and IOL power. Topical anesthesia was administered and ophthalmic povidone-iodine 5% was instilled into the conjunctival fornices. Lidocaine gel was applied to the cornea and the sil-ocular area was prepped with Betadine 10% solution and draped in the usual sterile fashion for intraocular surgery, including an aperture drape. A Tegaderm transparent film dressing was cut in half and used to cover the lashes and lid margins. Care was taken to sequester the lashes and lid margins under the Tegaderm dressing. A lid speculum was placed between the lids of the operative eye and the Nadir [employer] Revalia operating microscope was maneuvered into position. Jose Francisco scissors were then used to make a conjunctival buttonhole approximately 6mm posterior to the limbus in the inferonasal quadrant. Blunt dissection was carried out to expose bare sclera, and a blunt-tipped sub-tenon?s anesthesia cannula was introduced and passed posteriorly along the globe where non-preserved plain lidocaine was injected into posterior sub-Tenon?s space. A sideport knife was used to make a paracentesis port inferotemporally. Intraocular phenylephrine/lidocaine was injected into the anterior chamber. Air was injected into the anterior chamber, followed by Vision Blue, which was painted over the anterior capsule and then irrigated out with BSS. The anterior chamber was filled with viscoelastic. Viscoat was used to protect the corneal endothelium. A keratome knife was used to create a 2-plane near clear corneal tunnel extending approximately 2 mm into clear cornea superior temporally.. A flap was raised on the anterior capsule and capsulorhexis forceps were used to complete a continuous curvilinear capsulorhexis of 5.5 mm. The capsule was noted to be quite thin with some generalized zonular laxity. Balanced salt solution was then used to perform cortical cleaving hydrodissection and nuclear hydrodelineation until the lens could be freely rotated within the capsular bag. The lens nucleus was then disassembled and removed within the capsular bag and iris plane using phacoemulsification. There was a dense central fibrotic plate that was challenging to crack. Additional Viscoat was used to protect the corneal endothelium, as well as the posterior capsule and a final fragments were being removed. Residual cortical material was removed using the I/A handpiece. There was very little residual cortical material. In the superior nasal quadrant, but zonules were noted to be quite lax with the equator of the capsular bag visible. The posterior capsule was carefully polished to remove as much residual lens epithelial cells as safely possible. There was some residual posterior subcapsular plaque superiorly, as well as in the equatorial regions which could not be safely removed. The capsular bag was then inflated and the anterior chamber deepened with viscoelastic.A Morcher Type 15A The lens implant described above was inserted into the capsular bag using the [employer] [place] Injector. A Kuglen hook was used to dial the IOL into position. The underside of anterior capsule was polished using the [employer] nucleus manipulator. Residual viscoelastic was then removed first from posterior to the IOL, then from the anterior chamber using the I/A handpiece. The lens implant was noted to center nicely within the capsular bag. The incisions were stromally hydrated, and the anterior chamber was reformed using BSS. Then 0.5cc of moxifloxacin 1.0mg/ml were injected into the capsular bag and anterior chamber. The incisions were checked with a Weck spear and found to be secure. Several drops of ophthalmic povidone-iodine 5% were then applied to the eye followed by two drops of Imprimis combination prednisolone/moxifloxacin/nepafenac solution. The drapes were removed and a clear plastic protective eye shield was placed over the eye. The patient was then returned to Same Day Surgery in stable condition.
--- NOTE | 2022-02-19 12:29 | W.PM.DSUDISC ---
Discharge Plan Disposition Patient Disposition: HOME Condition: Good Discharge Details Attending Provider: Francisco J Perry Primary Care Provider: Yue Parham Home Meds and New Rx's Prescriptions: No Action cyanocobalamin (vitamin B-12) [Vitamin B-12] 1,000 mcg tablet 1,000 mcg PO DAILY folic acid 1 mg tablet 1 mg PO DAILY [place] MonoPure Curcumin EC 417 mg-120 mg- 276 mg-600 mg capsule PO PreserVision AREDS-2 250-90-40-1 mg tablet,chewable 1 tab PO QAM AND QPM donepezil 10 mg tablet 10 mg PO QHS Qty: 90 3RF mirtazapine 7.5 mg tablet 1 tab PO HS Label Comments: TAKE 1 TABLET BY MOUTH DAILY AT BEDTIME (TO REPLACE SERTRALINE) Discharge Instructions Stand Alone Forms: Post-op Topical Cataract, Rachele Bruce ([facility]) Discharge Orders Discharge Orders: Discharge Order (Routine); Ordered 02/19/22 Ordered By: Francisco J Perry DS: Diagnosis Discharge Diagnosis (1) Mature cataract: Status: Resolved
--- NOTE | 2022-02-19 14:13 | W.ANESPOSTOP ---
Postoperative Evaluation Date, Time and Location Date Performed: 02/19/22 Time Performed: 12:33 Patient Location: Day Surgery Unit Vital Signs Most Recent Imported Vital Signs: Most Recent Vital Signs Temp Pulse Resp BP Pulse Ox 36.4 C L 60 16 147/80 H 100 02/19/22 12:25 02/19/22 12:25 02/19/22 12:25 02/19/22 12:25 02/19/22 12:25 Pain Score Most Recent Pain Score: Most Recent Pain Score Pain Level 0 02/19/22 12:25 Assessment Mental Status: Awake (Alert & Oriented to Patient Baseline) Airway and Respiratory Function: Patent airway with normal (patient baseline) respiratory exam Cardiovascular Function: Hemodynamically Stable Hydration Status: Adequately Hydrated Nausea & Vomiting: No Nausea or Vomiting Pain: Pt. Denies Any Pain Peripheral Nerve Block: Patient did not receive a nerve block
== END 2022-02-19 12:58 | disposition home or self-care (01) ==
LOC: SUR 10:30
PROVIDERS: PCP Family Medicine; Visit Provider Ophthalmology
PROC: (CPT 66982; principal; 2022-02-19 13:30)
DX: H26.8 Other specified cataract (principal); H27.8 Other specified disorders of lens; R73.03 Prediabetes; F41.1 Generalized anxiety disorder
CPT/HCPCS: 66982; V2632

== ENCOUNTER 2022-04-06 15:18 | Outpatient (REF) | payer MEDICARE, OTHER, SELFPAY ==
[2022-04-07 13:33] LABS: HCV RNA Qualitative Undetected (Undetected)
== END 2022-04-06 15:19 | disposition home or self-care (01) ==
LOC: NCHCN 15:18
PROVIDERS: PCP Family Medicine; Visit Provider Family Medicine
DX: B18.2 Chronic viral hepatitis C (principal)
CPT/HCPCS: 87522

== ENCOUNTER → 2022-12-07 10:29 | Outpatient (BNVA) | payer MEDICARE, OTHER, SELFPAY | PROVIDERS: PCP Family Medicine; Referring Provider Family Medicine; Visit Provider Nurse Practitioner Adult Health | DX: G30.9 Alzheimer's disease, unspecified (principal); F02.80 Dementia in other diseases classified elsewhere, unspecified severity, without behavioral disturbance, psychotic disturbance, mood disturbance, and anxiety; F41.9 Anxiety disorder, unspecified | CPT/HCPCS: 99213 ==

== ENCOUNTER 2023-02-21 12:17 | Outpatient (REF) | payer MEDICARE, OTHER, SELFPAY ==
[2023-02-21 14:01] LABS: HCT 40.5 % (36.0-46.0); HGB 14.3 g/dL (11.2-15.7); MCH 32.6 pg (27.0-33.0); MCHC 35.3 % (32.0-36.0); MCV 92 fL (80-95); Platelet Count 190 10^3/uL (130-400); RBC 4.39 10^6/uL (3.93-5.22); RDW 12.5 % (11.7-14.6); RDW-SD 42.5 fL; WBC 6.31 10^3/uL (4.4-10.8)
[2023-02-21 14:39] LABS: Calculated LDL 87 mg/dL (<100); Cholesterol 171 mg/dL (<200); HDL Cholesterol 71 mg/dL (40-60); Triglyceride 66 mg/dL (<150); Vitamin B12 1161 pg/mL (193-986)
[2023-02-21 14:42] LABS: Folate > 20.0 ng/mL (8.6-20.0)
== END 2023-02-21 12:18 | disposition home or self-care (01) ==
LOC: NCHCN 12:17
PROVIDERS: PCP Family Medicine; Visit Provider Family Medicine
DX: D53.1 Other megaloblastic anemias, not elsewhere classified (principal); Z79.899 Other long term (current) drug therapy; R79.89 Other specified abnormal findings of blood chemistry
CPT/HCPCS: 80061; 85027; 82607; 82746

== ENCOUNTER → 2023-03-15 01:34 | Outpatient (CLI) | payer MEDICARE, OTHER, SELFPAY ==
--- NOTE | 2023-03-15 | DI.MAMMO_ITS ---
Exam(s) MG MAMMO SCREENING 60 MIN DUR EXAM: MG MAMMO SCREENING 60 MIN DUR CLINICAL HISTORY: PERSONAL H/O BREAST CA,X85.3, [facility],Z00.00. TECHNIQUE: Bilateral full field digital CC and MLO mammographic images were obtained with 3D tomosyn thesis and utilizing computer aided detection (CAD). COMPARISON: Prior mammograms were reviewed. Prior right lumpectomy. FINDINGS: There has been no significant change in the appearance and distribution of the fibroglandular tissue. There are no CAD designations. Postlumpectomy changes on the right side remain stable. No new spiculated masses. No malignant-appearing microcalcification groups. There is no significant architectural distortion nor skin thickening-retraction. IMPRESSION: No radiographic evidence of malignancy. Stable post lumpectomy changes in the right breast. BI-RADS Category 2 - Benign Findings Breast Density - Category B - Scattered areas of fibroglandular density Breast density Category C or D implies that the patient has dense breast tissue. Dense breast tissue can make it harder to find cancer on a mammogram. Dense breast tissue is also associated with an incr eased risk of breast cancer. This information about the result of the mammogram report was provided to the patient to raise their awareness. Use this report when you speak with the patient about their risks for breast cancer, which includes their family history. At that time, you may recommend additional screening tests (Ultrasoun d or MRI) as these tests may add significant information. A negative radiographic report should not delay biopsy if a dominant or clinically suspicious mass is present. Up to ten percent of cancers are not identified on mammography. A negative report may reinforce clinical impression. Adenosis and dense breasts may obscure an underlying neoplasm. False positive reports average 6 to 10%. Patient will receive a letter notifying them of these results.
== END ==
PROVIDERS: PCP Family Medicine; Visit Provider Family Medicine
DX: Z12.31 Encounter for screening mammogram for malignant neoplasm of breast (principal)
CPT/HCPCS: 77063; 77067

== ENCOUNTER → 2023-12-06 09:36 | Outpatient (BNVA) | payer MEDICARE, OTHER, SELFPAY | PROVIDERS: PCP Family Medicine; Referring Provider Family Medicine; Visit Provider Nurse Practitioner Adult Health | DX: G30.9 Alzheimer's disease, unspecified (principal); F02.80 Dementia in other diseases classified elsewhere, unspecified severity, without behavioral disturbance, psychotic disturbance, mood disturbance, and anxiety | CPT/HCPCS: 99214 ==

== ENCOUNTER 2024-03-16 00:28 | Outpatient (CLI) | payer MEDICARE, OTHER, SELFPAY ==
--- NOTE | 2024-03-16 | DI.MAMMO_ITS ---
Exam(s) MG MAMMO SCREENING 60 MIN DUR EXAM: MG MAMMO SCREENING 60 MIN DUR CLINICAL HISTORY: Screening, Z12.31; personal h/o breast ca TECHNIQUE: Bilateral full field digital CC and MLO mammographic images were obtained with 3D tomosyn thesis and utilizing computer aided detection (CAD). COMPARISON: Available for comparison. FINDINGS: Masses/Architectural Distortion: The patient has had a prior right lumpectomy. No suspicious masses or areas of architectural distortion are present. Microcalcifications: No suspicious pleomorphic-type are seen. Skin Thickening/Nipple Retraction: None. IMPRESSION: 1. No significant interval change with no specific features of malignancy noted. 2. Unless there is more urgent need, screening mammography is recommended, as per [place] [employer] guidelines. 3. Findings were discussed with the patient on the date of the examination. BI-RADS Category 2 - Benign Findings Breast Density - Category B - Scattered areas of fibroglandular density Breast density category C or D implies that the patient has dense breast tissue. Dense breast tissue is very common and is not abnormal but dense breast tissue can make it harder to find cancer on a ma mmogram. Also, dense breast tissue may increase their breast cancer risk. This information about the result of the mammogram report was provided to the patient to raise their awareness. Use this report when you speak with the patient about their risks for breast cancer, which includes their family hist ory. At that time, you may recommend for more screening tests (Ultrasound or MRI) as they might be us eful based on their risk. A negative radiographic report should not delay biopsy if a dominant or clinically suspicious mass is present. Up to ten percent of cancers are not identified on mammography. A negative report may reinforce clinical impression. Adenosis and dense breasts may obscure an underlying neoplasm. False positive reports average 6 to 10%. Patient will receive a letter notifying them of these results.
== END 2024-03-16 00:48 ==
PROVIDERS: PCP Family Medicine; Visit Provider Family Medicine
DX: Z12.31 Encounter for screening mammogram for malignant neoplasm of breast (principal)
CPT/HCPCS: 77063; 77067

== ENCOUNTER 2024-04-03 01:25 | Outpatient (CLI) | payer MEDICARE, OTHER, SELFPAY ==
--- NOTE | 2024-04-03 | DI.MRI_ITS ---
Exam(s) MR ABDOMEN WO/W EXAM: MR ABDOMEN WO/W CLINICAL HISTORY: CYST OF PANCREAS, K86.2 TECHNIQUE: Multiplanar multisequence MRI of the Abdomen was performed. CONTRAST MATERIAL: IV Contrast: 15 mL of Dotarem contrast administered. COMPARISON: MR MRI ABDOMEN WWO from 02/17/2022 FINDINGS: Liver: There is a 3.5 cm cyst in the dome of the right lobe of the liver. There is no enhancement. There are a few scattered tiny T2 hyperintense T1 hypointense lesions in the liver. They are too sma ll for further characterization but likely reflect small cysts. These appears stable. No suspicious hepatic lesion is identified. Pancreas: There again seen well-circumscribed T2 hyperintense T1 hypointense lesions in the pancreas. The largest is at the body tail junction and measures 9 mm. These are unchanged. They show no enh ancement. The findings are most consistent with simple cysts. No suspicious pancreatic mass is seen . No peripancreatic fluid collections are seen to suggest abscess. Gallbladder and Bile Ducts: No cholelithiasis. No biliary ductal dilatation. Adrenals: Unremarkable. Kidneys: Stable bilateral simple renal cysts. No follow-up is recommended. Spleen: Unremarkable. Bowel: Unremarkable. Aorta: Unremarkable. Soft Tissues: Unremarkable. Bone: Unremarkable. Lymph Nodes: Unremarkable. IMPRESSION: 1. Stable simple pancreatic cysts. Based on ???Management of Incidental Pancreatic Cyst: A White Pap er of the ACR Incidental Findings Committee???, appropriate follow-up is a repeat MR examination in 2 years. 2. Stable simple hepatic and renal cysts. 3. No acute abdominal process. DATA REPOSITORY:
[2024-04-03] MEDS: Normal Saline - Diluent 50 ML VIAL 25 ML IJ (09:50)
[2024-04-03] MEDS: Gadoterate meglumine 20 ML VIAL 15 ML IVP (09:50)
== END 2024-04-03 01:45 ==
LOC: DI 01:25
PROVIDERS: PCP Family Medicine; Visit Provider Family Medicine
DX: K86.2 Cyst of pancreas (principal)
CPT/HCPCS: 74183

== ENCOUNTER 2024-04-19 09:55 | Outpatient (CLI) | payer MEDICARE, OTHER, SELFPAY ==
--- NOTE | 2024-04-19 11:37 | DI.RAD_ITS ---
Exam(s) XR CHEST 2V PA LATERAL EXAM: XR CHEST 2V PA LATERAL CLINICAL HISTORY: PERSISTENT COUGH, R05.3. TECHNIQUE: 2D digital imaging was performed. COMPARISON: No exams were available for comparison FINDINGS: 2 views: Heart size is normal. The mediastinum is not widened. Lungs are clear. No infiltrates nor pleural effusions. IMPRESSION: No acute pulmonary findings. DATA REPOSITORY: RADIATION DOSE DELIVERED:
== END 2024-04-19 10:15 ==
LOC: DI 09:55
PROVIDERS: PCP Family Medicine; Visit Provider Physician Assistant Medical
DX: R05.3 Chronic cough (principal)
CPT/HCPCS: 71046

== ENCOUNTER → 2024-04-30 09:58 | Outpatient (BNVA) | payer MEDICARE, OTHER, SELFPAY | PROVIDERS: PCP Family Medicine; Referring Provider Family Medicine; Visit Provider Physical Therapy Assistant | DX: R09.A2 Foreign body sensation, throat (principal) | CPT/HCPCS: 99214 ==

== ENCOUNTER 2024-05-03 11:22 | Day surgery (SDC) | payer MEDICARE, OTHER, SELFPAY ==
[2024-05-03 11:46] VITALS: BP 134/89; PULSE 53; RESP 20; TEMP 36.6; O2SAT 99
[2024-05-03] MEDS: Lactated Ringers 1,000 ML 80 ML IV (11:56)
--- NOTE | 2024-05-03 12:12 | ANES.PREOP_ITS ---
General Info Date of Service Date Performed: 05/03/24 Height: 5 ft 3 in Weight: 63 kg Body Mass Index (BMI): 24.5 Surgical Procedure: Operation Date: 05/03/24 12:35 Proposed Procedure Side Surgeon [place] FOFANA w/BX Mohan Silvestre MD Meds Allergies and Home Medications Allergies Allergy/AdvReac Type Severity Reaction Status Date / Time No Known Allergies Allergy Verified 05/03/24 11:37 Home Medication ?Medication ?Instructions ?Recorded cyanocobalamin (vitamin B-12) 1,000 mcg PO DAILY 09/09/21 1,000 mcg tablet (Vitamin B-12) folic acid 1 mg tablet 1 mg PO DAILY 09/09/21 omega-3 417 mg-dha 120 mg-epa-276 1 cap PO DAILY 09/10/21 mg-fish oil 600 mg-turmeric capsule ([place] MonoPure Curcumin EC) vit C 250 mg-E 90 mg-zinc 40 1 tab PO QAM AND QPM 09/10/21 mg-copper 1 ud-dhgpdy-ocaogo chew tablet (PreserVision AREDS-2) mirtazapine 7.5 mg tablet 1 tab PO HS 02/17/22 donepezil 10 mg tablet 10 mg .Route QHS #90 tabs 12/13/23 memantine 10 mg tablet 10 mg PO BID #180 tabs 01/17/24 Current Visit Medications: Current Medications Generic Name Dose Route Start Last Admin Trade Name Freq PRN Reason Stop Dose Admin Ringer's Solution 1,000 mls @ 80 mls/hr 05/03/24 06:00 05/03/24 11:56 IV 05/03/24 23:59 80 mls/hr INFUSION CAROLE Administration IV Miscellaneous Supplies 1 each 05/03/24 06:00 Iv Access IV 05/03/24 23:59 DIRECTED CAROLE Sodium Chloride 0 ml 05/03/24 06:00 Normal Saline Flush 10 Ml Syr IV 05/03/24 23:59 PRN PRN Sodium Chloride 0 ml 05/03/24 06:00 Normal Saline 10 Ml Vial IJ 05/03/24 23:59 DIRECTED PRN Sterile Water 0 ml 05/03/24 06:00 Water,Injection,Sterile 10 Ml Vial IJ 05/03/24 23:59 DIRECTED PRN PFSH Active Problems Active Problems: Problem Status Onset Code Globus sensation Acute R09.A2 Mature cataract Resolved H26.8 Alzheimer's dementia Acute G30.9, F02.80 Cognitive impairment Acute R41.89 Actinic keratoses Acute L57.0 Neoplasm of unspecified behavior of bone, soft tissue, and skin Acute D49.2 [place] hemangioma Acute Q82.5 Medical History Medical History Osteoporosis Anemia Vitamin B12 and folate deficiency Hepatitis C without hepatic coma s/p recent treatment, RNA in December. Repeat RNA level pending 03/2022 Liver mass MRI pending 04/01 ZULY (generalized anxiety disorder) Hx of breast cancer Prediabetes Cataract Surgical History Surgical History History of liver biopsy Tobacco Smoking/Tobacco Use Status: Never Alcohol Alcohol Intake: current Alcohol intake frequency: a few times a week Substance Use Substance use: Never Substance use type: does not use Vital Signs and Lab Results Vital Signs Most Recent Vital Signs in EMR: Most Recent Vital Signs Temp Pulse Resp BP Pulse Ox 36.6 C 53 L 20 134/89 99 05/03/24 11:46 05/03/24 11:46 05/03/24 11:46 05/03/24 11:46 05/03/24 11:46 Lab Results Blood Type / Crossmatch: No Data to Display Complete Blood Count: No Data to Display Complete Metabolic Panel: No Data to Display Liver Function Panel: No Data to Display Coagulation Panel: No Data to Display Cardiac Panel: No Data to Display Arterial Blood Gas: No Data to Display Venous Blood Gas: No Data to Display Pancreas Panel: No Data to Display Thyroid Panel: No Data to Display Infectious Disease: No Data to Display Blood Cultures: No Data to Display Toxicology Panel: No Data to Display Anesthesia Assessment and Plan Anesthesia History Personal History: No History of Anesthesia Complications Family History: No Family History of Anesthesia Complications Exercise Tolerance Exercise Tolerance: Metabolic Equivalents>4 Pertinent Negatives Pertinent Negatives: No Symptoms of GERD Cardiac & Pulmonary Exam Cardiac Exam: Normal S1/S2 Heart Sounds Pulmonary Exam: Clear Bilateral Breath Sounds Implantable Cardiac Device Does patient have a Pacemaker or an ICD?: No Airway Exam Known Difficult Airway: No Mallampati Class: 2 Mouth Opening: Normal (> 3cm) Thyromental Distance: Greater than 3 cm Neck Range of Motion: Full ROM Neck Circumference: Normal Teeth Condition: Normal Dentition ASA Classification ASA Score: ASA 2 Emergency Case?: No NPO Status NPO Status: NPO Clears >2 hours, Solids >8 hours Anesthesia Plan Resuscitation Status: Full Code Anesthesia Technique: General Anesthesia Airway Planned: Natural Airway Monitors Used: Standard Monitors
[2024-05-03 12:15] VITALS: BMI 24.5
--- NOTE | 2024-05-03 12:38 | STOM_PTH ---
PATIENT: Loli May LOC: [facility] U#:[id number] AGE/SX: 73/F ROOM: RE05/03/[address]: Mohan Silvestre : 1950 BED: DIS: 05/03/2024 SPEC #: [id number] RECD: 05/03/24 13:28 STATUS: SHARRI RE #: [id number] BACILIO: 05/03/24 12:[address]: Mohan Silvestre DEPT: Surgical Specimen RECD BY: Melvina Lewis ENTERED: 05/03/24 13:29 SP TYPE: STOMACH OTHR DR: Yue Parham Tissues: 1 - STOMACH BIOPSY 2 - STOMACH BIOPSY 3 - ESOPHAGUS BIOPSY Procedures: GROSS AND MICRO LEVEL 4 Comments: [id number]
[2024-05-03 12:51] VITALS: PULSE 68; RESP 18; TEMP 36.8; O2SAT 96
--- NOTE | 2024-05-03 12:52 | W.ANESPOSTOP ---
Postoperative Evaluation Date, Time and Location Date Performed: 05/03/24 Time Performed: 12:52 Patient Location: Day Surgery Unit Vital Signs Most Recent Imported Vital Signs: Most Recent Vital Signs Temp Pulse Resp BP Pulse Ox 36.8 C 68 18 134/89 96 05/03/24 12:51 05/03/24 12:51 05/03/24 12:51 05/03/24 11:46 05/03/24 12:51 Pain Score Most Recent Pain Score: Most Recent Pain Score Pain Level 0 05/03/24 12:51 Assessment Mental Status: Awake (Alert & Oriented to Patient Baseline) Airway and Respiratory Function: Patent airway with normal (patient baseline) respiratory exam Cardiovascular Function: Hemodynamically Stable Hydration Status: Adequately Hydrated Nausea & Vomiting: No Nausea or Vomiting Pain: Pt. Denies Any Pain Peripheral Nerve Block: Patient did not receive a nerve block
[2024-05-03 12:53] VITALS: BP 118/88
--- NOTE | 2024-05-03 13:04 | W.PM.ENDDOP ---
Date of service: 05/03/24 Time of Service: 13:04 Endoscopy Report PROCEDURE DESCRIPTION: PROCEDURES PERFORMED: 1. EGD with biopsies PREOPERATIVE DIAGNOSIS: Globus sensation POSTOPERATIVE DIAGNOSIS: Normal foregut SURGEON: Radha Silvestre MD INDICATION FOR PROCEDURE: 73-year-old woman has had a sensation in her throat for a number of months. FINDINGS: D2/D3 = normal D1/bulb = normal - no ulcers or inflammation Pylorus = normal Antrum = normal appearance, no ulcers, no visible inflammation or gastropathy. Cold forceps biopsies were taken to rule out H. pylori routinely Body = normal appearance, biopsies taken with cold forceps technique routinely Fundus = normal, no polyps Cardia = normal Hiatus = no hiatal hernia appreciated. Distal esophagus = no inflammation, no esophagitis, no Dumont's, no stricture. I took biopsies here because of her symptoms. Mid esophagus = normal in appearance Proximal esophagus/hypopharynx/vocal cords = normal in appearance SURVEILLANCE-INTERVAL/FOLLOW-UP: Follow-up with PCP Specimens: Yes EBL: Minimal COMPLICATIONS: None Procedure in detail: The patient gave written consent and was in agreement with the indications, the potential risks as well as the benefits of the procedure. The patient was taken to the endoscopy suite and laid on their left side. Anesthesia was given which was tolerated well. We performed a timeout and we are in agreement I started the procedure. A well-lubricated endoscope was gently and carefully advanced down the esophagus, into the stomach the scope was and through the pylorus into the duodenum. The scope was then slowly withdrawn with the above-noted findings/interventions. The patient tolerated the procedure well.
--- NOTE | 2024-05-03 13:05 | PDOC.DSDIS_ITS ---
Date of service: 05/03/24 Time of Service: 13:05 Discharge Plan Disposition Patient Disposition: Home Condition: Good Discharge Details Attending Provider: Mohan Silvestre Primary Care Provider: Yue Parham Home Meds and New Rx's Prescriptions: No Action cyanocobalamin (vitamin B-12) [Vitamin B-12] 1,000 mcg tablet 1,000 mcg PO DAILY folic acid 1 mg tablet 1 mg PO DAILY [place] MonoPure Curcumin EC 417 mg-120 mg- 276 mg-600 mg capsule 1 cap PO DAILY PreserVision AREDS-2 250-90-40-1 mg tablet,chewable 1 tab PO QAM AND QPM donepezil 10 mg tablet 10 mg .ROUTE QHS Qty: 90 3RF Rx Instructions: 10 mg every day at bedtime; memantine 10 mg tablet 10 mg PO BID Qty: 180 3RF mirtazapine 7.5 mg tablet 1 tab PO HS Patient Comments: TAKE 1 TABLET BY MOUTH DAILY AT BEDTIME (TO REPLACE SERTRALINE) Discharge Instructions Additional Instructions: FINDINGS: Your esophagus looks normal. No obvious explanation for your symptoms. Follow-up with your PCP to discuss further Stand Alone Forms: Anesthesia Discharge Inst., DSU Post EGD Instructions, Rachele Bruce (DSU) Activity:: Activity as Tolerated Diet:: As Tolerated
[2024-05-03 13:09] VITALS: BP 111/44; PULSE 58; RESP 16; TEMP 36.6; O2SAT 98
== END 2024-05-03 13:19 | disposition home or self-care (01) ==
PROVIDERS: PCP Family Medicine; Visit Provider Student in an Organized Health Care Education/Training Program
PROC: 0DJ68ZZ Inspection of Stomach, Via Natural or Artificial Opening Endoscopic (ICD-10-PCS; CPT 43235; principal; 2024-05-03 12:30)
DX: R09.A2 Foreign body sensation, throat (principal); K31.9 Disease of stomach and duodenum, unspecified; K22.89 Other specified disease of esophagus
CPT/HCPCS: 43239; 00123; 88305; J2704

== ENCOUNTER 2024-05-29 15:30 | Emergency (ER) | payer MEDICARE, OTHER, SELFPAY ==
[2024-05-29 15:31] VITALS: BP 127/90; PULSE 71; RESP 18; TEMP 36.8; O2SAT 99
--- NOTE | 2024-05-29 15:44 | ED.GENADUL_ITS ---
Discharge Plan Disposition Patient Disposition: Home Condition: Stable Discharge Details Clinical Impression: Hypopharyngeal mass Primary Care Provider: Yue Parham ED Provider: Ho Gibbs Home Meds and New Rx's Prescriptions: New amoxicillin-pot clavulanate 875-125 mg tablet 1 tab PO BID 5 Days Qty: 10 0RF Continued cyanocobalamin (vitamin B-12) [Vitamin B-12] 1,000 mcg tablet 1,000 mcg PO DAILY folic acid 1 mg tablet 1 mg PO DAILY [place] MonoPure Curcumin EC 417 mg-120 mg- 276 mg-600 mg capsule 1 cap PO DAILY PreserVision AREDS-2 250-90-40-1 mg tablet,chewable 1 tab PO QAM AND QPM donepezil 10 mg tablet 10 mg .ROUTE QHS Qty: 90 3RF Rx Instructions: 10 mg every day at bedtime; memantine 10 mg tablet 10 mg PO BID Qty: 180 3RF mirtazapine 7.5 mg tablet 1 tab PO HS Patient Comments: TAKE 1 TABLET BY MOUTH DAILY AT BEDTIME (TO REPLACE SERTRALINE) pantoprazole 40 mg tablet,delayed release (DR/EC) 40 mg PO DAILY Patient Comments: TAKE ONE TABLET BY MOUTH EVERY DAY WITH DINNER Discharge Instructions Instructions: Throat cancer, Aspiration pneumonia, Amoxicillin and Clavulanate Additional Instructions: You were seen in the emergency department for your neck swelling and vocal changes and chronic cough, there appears to be a mass in your hypopharynx which is part of your neck and throat, extends from the vocal cords to the epiglottis and is about 2 x 2 x 2.5 cm. I spoke with Dr. Carlton at [facility] ENT practice and he recommended an urgent outpatient referral, our care management team will be working on that for you, please reach out to them as well as [facility] for next steps. You are stable at this time and tolerating oral intake and have no airway compromise therefore it is reasonable to wait for your urgent referral. Please return to an emergency department for any signs of airway compromise, inability to tolerate p.o. intake or other emergent concerns Due to your ongoing cough and aspiration risk with this neck mass I have started you on Augmentin for 5 days to treat empiric aspiration pneumonia. Referrals: Care Management [Provider Group] [facility] [Outside] Yue Parham MD [Primary Care Provider] - HPI General Date/Time Provider Initiated Documentation: 05/29/24 15:32 . HPI Narrative: 73 year-old female presents to ED today by POV/ambulating with her with a chief complaint of vocal changes, throat swelling/pain, ongoing nonproductive dry cough for months- throat pain noticed today. Patient had recent CXR and upper endoscopy without findings on 05/03/24. Quality described as generalized cough, foreign body sensation of throat, no radiation to productive cough, fevers, weight-loss, excessive drooling, inability to tolerate PO intake. Severity is described as not painful. Palliating factors include nothing specific. Provoking factors include nothing specific. Events leading up to the incident/Associated Symptoms: Patient endorses remote history of breast CA, endorses her mother had some kind of throat cancer. Patient not anticoagulated. Related Data Home Medications ?Medication ?Instructions ?Recorded ?Confirmed cyanocobalamin (vitamin B-12) 1,000 mcg PO DAILY 09/09/21 05/29/24 1,000 mcg tablet (Vitamin B-12) folic acid 1 mg tablet 1 mg PO DAILY 09/09/21 05/29/24 omega-3 417 mg-dha 120 mg-epa-276 1 cap PO DAILY 09/10/21 05/29/24 mg-fish oil 600 mg-turmeric capsule ([place] MonoPure Curcumin EC) vit C 250 mg-E 90 mg-zinc 40 1 tab PO QAM AND QPM 09/10/21 05/29/24 mg-copper 1 [id number] chew tablet (PreserVision AREDS-2) mirtazapine 7.5 mg tablet 1 tab PO HS 02/17/22 05/29/24 donepezil 10 mg tablet 10 mg .Route QHS #90 tabs 12/13/23 05/29/24 memantine 10 mg tablet 10 mg PO BID #180 tabs 01/17/24 05/29/24 amoxicillin 875 mg-potassium 1 tab PO BID aspiration pneumonia 05/29/24 clavulanate 125 mg tablet 5 days #10 tabs pantoprazole 40 mg tablet,delayed 40 mg PO DAILY 05/29/24 05/29/24 release Previous Rx's ?Medication ?Instructions ?Recorded donepezil 10 mg tablet 10 mg .Route QHS #90 tabs 12/13/23 memantine 10 mg tablet 10 mg PO BID #180 tabs 01/17/24 amoxicillin 875 mg-potassium 1 tab PO BID aspiration pneumonia 05/29/24 clavulanate 125 mg tablet 5 days #10 tabs Allergies Allergy/AdvReac Type Severity Reaction Status Date / Time No Known Allergies Allergy Verified 05/29/24 16:52 General Stated Complaint: GenMedical BRITTNEY: 3 Review of Systems All systems reviewed & are unremarkable except as noted in HPI and below Exam Narrative Exam Narrative: GENERAL APPEARANCE: Well-nourished, non-toxic, awake and alert, atraumatic, no acute distress. SKIN: Warm, pink, dry, intact, without rashes/lesions/ulcerations. HEAD: Normocephalic, atraumatic, normal hair distribution for gender/age. EYES: Normal conjunctiva, no exudates on lids/lashes. ENT: Nares patent, no circumoral cyanosis, no facial swelling, left submandibular lymphadenopathy with a large rounded semimobile submandibular gland with some mild tenderness spreading down the anterior lymph chain, no unilateral tonsillar swelling, uvula midline, hoarse voice, no trismus, managing secretions well NECK: Supple, trachea midline, painless cervical ROM. LUNGS/CHEST: Lungs CTA bilaterally-no rhonchi/rales/wheezes diffusely, active cough, non-labored respirations, normal A/P diameter, symmetrical expansion, no chest wall deformity HEART (CV/PV): Regular rate and rhythm without murmur, no peripheral edema, no JVD. ABDOMEN: Soft, non-distended, no guarding. MSK: Normal ROM, no swelling/deformity to bilateral UEs or LEs, moving all extremities without weakness, no cyanosis, spine midline without tenderness, normal curvature. NEURO: Mental Status AAOx4 - alert to person, place, time, events No facial droop, no forehead involvement. Motor: No focal weakness - strength 5/5 in bilateral UEs and LEs, proximal and distal, symmetric. Sensory: sensation intact to light touch globally. Gait normal: patient ambulated without ataxia into ED room. PSYCH: euthymic, cooperative, pleasant, appropriate speech Course Vital Signs Vital signs: Vital Signs Temperature 36.8 C 05/29/24 15:31 Pulse 71 05/29/24 15:31 Respiratory Rate 18 05/29/24 15:31 Blood Pressure 127/90 05/29/24 15:31 Pulse Oximetry 99 05/29/24 15:31 Temperature 36.8 C 05/29/24 15:31 Temperature Source Oral 05/29/24 15:31 Pulse 71 05/29/24 15:31 Respiratory Rate 18 05/29/24 15:31 Blood Pressure 127/90 05/29/24 15:31 Blood Pressure Position Sitting 05/29/24 15:31 Pulse Oximetry 99 05/29/24 15:31 Oxygen Delivery Method Room Air 05/29/24 15:31 Oxygen Flow Rate 0 05/29/24 15:31 Medical Decision Making This dictation utilizes [id number] dictation software and may contain unedited grammatical errors. 73 year-old female presents to ED today by POV/ambulating with her with a chief complaint of vocal changes, throat swelling/pain, ongoing nonproductive dry cough for months- throat pain noticed today. Patient had recent CXR and upper endoscopy without findings on 05/03/24. Quality described as generalized cough, foreign body sensation of throat, no radiation to productive cough, fevers, weight-loss, excessive drooling, inability to tolerate PO intake. Severity is described as not painful. Palliating factors include nothing specific. Provoking factors include nothing specific. Events leading up to the incident/Associated Symptoms: Patient endorses remote history of breast CA, endorses her mother had some kind of throat cancer. Patients' medical history: Osteoporosis, anemia, hepatitis C with hepatic coma, prediabetes, Alzheimer's. Family and social history: Noncontributory, non-smoker. Pertinent exam findings / vital signs include left asymmetric neck and submandibular gland swelling with mild tenderness, hoarse voice, tolerating p.o. and managing secretions, lungs CTA, uvula midline. Differential / pathologies of concern include neck mass, cancer, abscess, URI. Diagnostic studies of: -CBC, CMP, CT chest and neck with contrast. -CT shows significant left neck mass extending from left vocal cord to left epiglottis, 2 x 2 x 2.5 with mild airway narrowing -CBC and CMP are benign Interventions of: -[facility] consult spoke with Dr. Carlton at 1852, recommends urgent outpatient follow-up. 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 intake. Findings not consistent with deep space infection. Disposition of Hypopharyngeal Mass. Patient verbalized understanding of the plan and return to ED criteria and e ngaged in shared decision making. Medical Records Medical records reviewed: Yes I reviewed the patient's medical records. Imaging Data Radiologic Study: Attestation: I personally reviewed and interpreted this imaging study as follows: Imaging: CT Scan Radiologist's impression: EXAM: CT NECK CHEST W CLINICAL HISTORY: L submandibular lymph, vocal changes TECHNIQUE: Imaging Protocol: Axial computed tomography images with coronal and sagittal reformatted images were created and reviewed. Computer aided detection (CAD) was utilized. CONTRAST MATERIAL: Intravenous: Omnipaque 350 Contrast volume:100 ml Oral: COMPARISON: MG MG MAMMO SCREENING 60 MIN DUR from 03/16/2024 CR XR CHEST 2V PA LATERAL from 04/19/2024 FINDINGS: Neck: The exam is limited by artifact from dental work and mild motion. Parotids and thyroid gland: Normal. Submandibular gland. Asymmetric enlargement of left submandibular gland. Lymphadenopathy: There are scattered lymph nodes seen along the level one to level three all measuring less than 8 mm in short axis diameter which are physiologic in nature. No visible enlarged submandibular lymph nodes. Carotids/Jugular: Within normal limits. Soft tissues: The floor the mouth is mostly obscured by dental work. Soft tissue mass noted in the left supraglottic region, in the region of the aryepiglottic folds extends to the level of the epiglottis. Mild narrowing of the airway. Approximate measurements are 2.5 cm AP by 2 cm transverse by 2 cm cephalo caudad. Bones: No fracture. No lytic or blastic lesions. Chest: Tracheobronchial tree: Patent where visualized. Mediastinum and Jazmyne: No dominant adenopathy or fluid collection. Pulmonary parenchyma: No consolidation or dominant measurable mass. Scattered tiny pulmonary nodules, the largest nodules at the left lower lobe measuring 6 millimeters. Mild scarring anterior right middle lobe Pleura: No effusion or pneumothorax. Heart/Aorta: Ascending aorta dilated to 3.9 cm. The heart is not dilated. No coronary artery calcifications are seen. Pulmonary arteries: No evidence of emboli. Bones: No fracture. No lytic or blastic lesions. Soft tissues: Post lumpectomy changes of the right breast. ABDOMEN: Liver: Normal density. Stable cyst. No biliary dilatation. Spleen: Normal size. Adrenal glands: No masses seen. Abdominal Aorta: Abdominal portion non-dilated. IMPRESSION: Neck CT: 2.5 centimeter mass extending from the level of the left vocal cord to the level of the epiglottis causing mild airway narrowing. Asymmetric enlargem ent of the left submandibular gland. Chest CT: Nonspecific small pulmonary nodules, largest 6 millimeters. Lab Data Lab results reviewed: Yes I reviewed the patient's lab results. Labs: Laboratory Tests Range/Units 05/29/24 16:13 WBC (4.4-10.8) 10^3/uL 8.59 RBC (3.93-5.22) 10^6/uL 4.39 Hgb (11.2-15.7) g/dL 13.9 Hct (36.0-46.0) % 41.4 MCV (80-95) fL 94 MCH (27.0-33.0) pg 31.7 MCHC (32.0-36.0) % 33.6 RDW (11.7-14.6) % 12.1 Plt Count (130-400) 10^3/uL 216 MPV (8.0-11.0) fL 11.2 H Immature Gran % % 0.1 Neutrophils % % 69.2 Lymphocytes % % 21.1 Monocytes % % 6.3 Eosinophils % % 2.4 Basophils % % 0.9 Nucleated RBC % (0.0-0.3) % 0.0 Absolute Neutrophils (1.2-6.7) 10^3/uL 5.94 Absolute Lymphocytes (1.2-3.4) 10^3/uL 1.81 Absolute Monocytes (0.1-0.8) 10^3/uL 0.54 Absolute Eosinophils (0.0-0.7) 10^3/uL 0.21 Absolute Basophils (0.0-0.2) 10^3/uL 0.08 Sodium (136-145) mmol/L 144 Potassium (3.5-5.1) mmol/L 3.6 Chloride (98-107) mmol/L 105 Carbon Dioxide (21.0-32.0) mmol/L 31.8 Anion Gap (3-11) mmol/L 7.2 BUN (7-18) mg/dL 9 Creatinine (0.55-1.02) mg/dL 1.0 Est GFR (CKD-EPI 2020) (mL/min/1.73m2) 59.49 Glucose (74-106) mg/dL 101 Calcium (8.5-10.1) mg/dL 9.7 Total Bilirubin (0.2-1.0) mg/dL 0.60 AST (15-37) U/L 19 ALT (14-59) U/L 18 Alkaline Phosphatase (46-116) U/L 120 H Total Protein (6.4-8.2) g/dL 8.3 H Albumin (3.4-5.0) g/dL 4.4 Quality:SDOH Health Related Social Needs: No Data to Display PFSH All Active Problems (Updated 05/29/24 @ 19:15 by USHA Jack) Hypopharyngeal mass (Acute) Globus sensation (Acute) Alzheimer's dementia (Acute) Cognitive impairment (Acute) Actinic keratoses (Acute) Neoplasm of unspecified behavior of bone, soft tissue, and skin (Acute) [place] hemangioma (Acute) Medical History (Updated 05/29/24 @ 19:15 by USHA Jack) Osteoporosis Anemia Vitamin B12 and folate deficiency Hepatitis C without hepatic coma s/p recent treatment, RNA in December. Repeat RNA level pending 03/2022 Liver mass MRI pending 04/01 ZULY (generalized anxiety disorder) Hx of breast cancer Prediabetes Cataract Surgical History (Updated 05/04/24 @ 13:16 by Carmen Tran) History of esophagogastroduodenoscopy (~04/2024) History of liver biopsy Social History Smoking/Tobacco Use Status: Never Smoking risk assessment performed?: Yes Alcohol Intake: current Alcohol Intake frequency: a few times a week Alcohol type: beer and wine Drug use: Never Substance use type: does not use Household members: significant other Housing: house Do you think of yourself as: straight/heterosexual Current gender identity: female What is your relationship status?: living with partner Panel score (0-1 are the most socially isolated patients): 1 Do you feel safe at home: Yes Do you feel safe in your relationship?: Yes
[2024-05-29 16:23] LABS: Abs Immature Grans 0.01 10^3/uL (0.0-0.06); Absolute Basophil Count 0.08 10^3/uL (0.0-0.2); Absolute Eosinophil Count 0.21 10^3/uL (0.0-0.7); Absolute Lymphocyte Count 1.81 10^3/uL (1.2-3.4); Absolute Monocyte Count 0.54 10^3/uL (0.1-0.8); Absolute Neutrophil Count 5.94 10^3/uL (1.2-6.7); Basophils % 0.9 %; Eosinophils % 2.4 %; HCT 41.4 % (36.0-46.0); HGB 13.9 g/dL (11.2-15.7); Immature Grans % 0.1 %; Lymphocytes % 21.1 %; MCH 31.7 pg (27.0-33.0); MCHC 33.6 % (32.0-36.0); MCV 94 fL (80-95); MPV 11.2 fL (8.0-11.0); Monocytes % 6.3 %; Neutrophils % 69.2 %; Platelet Count 216 10^3/uL (130-400); RBC 4.39 10^6/uL (3.93-5.22); RDW 12.1 % (11.7-14.6); RDW-SD 42.5 fL; WBC 8.59 10^3/uL (4.4-10.8)
[2024-05-29 16:39] LABS: ALT 18 U/L (14-59); AST 19 U/L (15-37); Albumin 4.4 g/dL (3.4-5.0); Alkaline Phosphatase 120 U/L (46-116); Anion Gap 7.2 mmol/L (3-11); BUN 9 mg/dL (7-18); CO2 31.8 mmol/L (21.0-32.0); Calcium 9.7 mg/dL (8.5-10.1); Chloride 105 mmol/L (98-107); Estimated GFR 59.49 (mL/min/1.73m2); Glucose 101 mg/dL (74-106); Potassium 3.6 mmol/L (3.5-5.1); Sodium 144 mmol/L (136-145); Total Protein 8.3 g/dL (6.4-8.2)
[2024-05-29 16:51] VITALS: BP 120/80; PULSE 71; RESP 18; TEMP 36.8; O2SAT 99
[2024-05-29] MEDS: Normal Saline - Diluent 50 ML VIAL IJ (17:13)
--- NOTE | 2024-05-29 17:14 | DI.CT_ITS ---
Exam(s) CT NECK CHEST W EXAM: CT NECK CHEST W CLINICAL HISTORY: L submandibular lymph, vocal changes TECHNIQUE: Imaging Protocol: Axial computed tomography images with coronal and sagittal reformatted images were created and reviewed. Computer aided detection (CAD) was utilized. CONTRAST MATERIAL: Intravenous: Omnipaque 350 Contrast volume:100 ml Oral: COMPARISON: MG MG MAMMO SCREENING 60 MIN DUR from 03/16/2024 CR XR CHEST 2V PA LATERAL from 04/19/2024 FINDINGS: Neck: The exam is limited by artifact from dental work and mild motion. Parotids and thyroid gland: Normal. Submandibular gland. Asymmetric enlargement of left submandibular gland. Lymphadenopathy: There are scattered lymph nodes seen along the level one to level three all measuri ng less than 8 mm in short axis diameter which are physiologic in nature. No visible enlarged submand ibular lymph nodes. Carotids/Jugular: Within normal limits. Soft tissues: The floor the mouth is mostly obscured by dental work. Soft tissue mass noted in the left supraglottic region, in the region of the aryepiglottic folds exte nds to the level of the epiglottis. Mild narrowing of the airway. Approximate measurements are 2.5 cm AP by 2 cm transverse by 2 cm cephalo caudad. Bones: No fracture. No lytic or blastic lesions. Chest: Tracheobronchial tree: Patent where visualized. Mediastinum and Jazmyne: No dominant adenopathy or fluid collection. Pulmonary parenchyma: No consolidation or dominant measurable mass. Scattered tiny pulmonary nodules, the largest nodules at the left lower lobe measuring 6 millimeters. Mild scarring anterior right mi ddle lobe Pleura: No effusion or pneumothorax. Heart/Aorta: Ascending aorta dilated to 3.9 cm. The heart is not dilated. No coronary artery calcifi cations are seen. Pulmonary arteries: No evidence of emboli. Bones: No fracture. No lytic or blastic lesions. Soft tissues: Post lumpectomy changes of the right breast. ABDOMEN: Liver: Normal density. Stable cyst. No biliary dilatation. Spleen: Normal size. Adrenal glands: No masses seen. Abdominal Aorta: Abdominal portion non-dilated. IMPRESSION: Neck CT: 2.5 centimeter mass extending from the level of the left vocal cord to the level of the epig lottis causing mild airway narrowing. Asymmetric enlargement of the left submandibular gland. Chest CT: Nonspecific small pulmonary nodules, largest 6 millimeters. Findings called to Dr. Vega of the emergency department. RADIATION DOSE DELIVERED: Total DLP DATA REPOSITORY: All CT scans at this facility are submitted to the National Radiology Data Registry (NRDR) Dose Index Registry (DIR) with the [employer] (ACR). RADIATION OPTIMIZATION: All CT scans at this facility use at least one of these dose optimization te chniques: automated exposure control; mA and/or kV adjustment per patient size (includes targeted exa ms where dose is matched to clinical indication); or iterative reconstruction.
[2024-05-29 19:41] VITALS: BP 154/82; PULSE 65; TEMP 36.2; O2SAT 98
[2024-05-29 20:32] VITALS: BP 154/82; PULSE 65; RESP 14; TEMP 36.2; O2SAT 98
== END 2024-05-29 20:32 | disposition home or self-care (01) ==
PROVIDERS: Emergency Provider Physician Assistant; PCP Family Medicine
DX: D10.9 Benign neoplasm of pharynx, unspecified (principal)
CPT/HCPCS: 36415; 70491; 80053; 99285; 71260; 85025; 99284

== ENCOUNTER → 2024-06-05 09:04 | Outpatient (BNVA) | payer MEDICARE, OTHER, SELFPAY | PROVIDERS: PCP Family Medicine; Visit Provider Nurse Practitioner Adult Health | DX: G30.9 Alzheimer's disease, unspecified (principal); F02.80 Dementia in other diseases classified elsewhere, unspecified severity, without behavioral disturbance, psychotic disturbance, mood disturbance, and anxiety | CPT/HCPCS: 99214 ==

== ENCOUNTER 2024-07-24 02:30 | Outpatient (CLI) | payer MEDICARE, OTHER, SELFPAY ==
--- NOTE | 2024-07-24 | DI.MRI_ITS ---
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 CONTRAST MATERIAL: IV Contrast: 11 mL of Magnevist contrast administered. COMPARISON: CT CT NECK CHEST W from 05/29/2024 FINDINGS: Exam is significantly limited by motion. Parotids/submandibular: Normal. Thyroid not well seen. Lymphadenopathy: There are scattered lymph nodes seen along the level one to level three all measuri ng less than 8 millimeter short axis, not definitely pathologically enlarged.. Soft tissues: Significant motion at the level of the larynx and supraglottic region. Left-sided supra glottic high signal mass noted measuring approximately 3 by 14 by 3.6 cm.. Images through both lung a pices are unremarkable. Cervical Spine: Normal marrow signal. Degenerative disc changes. Cord signal is normal. IMPRESSION: Exam is significantly limited by motion. Left-sided supraglottic mass again demonstrated. DATA REPOSITORY:
[2024-07-24] MEDS: Gadoterate meglumine 20 ML VIAL IVP (13:23)
[2024-07-24] MEDS: Normal Saline Flush 10 ML SYR IJ (13:26)
== END 2024-07-24 02:50 ==
LOC: DI 02:30
PROVIDERS: PCP Family Medicine; Visit Provider Physician Assistant
DX: J38.7 Other diseases of larynx (principal)
CPT/HCPCS: 70543

== ENCOUNTER 2024-08-03 16:20 | Outpatient (REF) | payer MEDICARE, OTHER, SELFPAY ==
--- NOTE | 2024-08-03 11:50 | SKI_PTH ---
PATIENT: Loli May LOC: [facility] U#:[id number] AGE/SX: 73/F ROOM: RE08/03/[address]: Federico Mccormick : 1950 BED: DIS: 08/03/2024 SPEC #: [id number] RECD: 08/03/24 17:49 STATUS: SHARRI REBryon #: [id number] BACILIO: 08/03/24 11:[address]: Federico Mccormick DEPT: Surgical Specimen RECD BY: Melvina Lewis ENTERED: 08/03/24 17:50 SP TYPE: HAIR BALLARD DR: Yue Parham Tissues: 1 - SKIN BIOPSY(SHAVE/PUNCH) Procedures: SKIN LEVEL 4 Comments: [id number]
== END 2024-08-03 16:21 | disposition home or self-care (01) ==
LOC: NCHCN 16:20
PROVIDERS: PCP Family Medicine; Visit Provider Student in an Organized Health Care Education/Training Program
DX: D22.9 Melanocytic nevi, unspecified (principal)
CPT/HCPCS: 88305

== ENCOUNTER → 2024-11-26 09:27 | Outpatient (BNVA) | payer MEDICARE, OTHER, SELFPAY | PROVIDERS: PCP Family Medicine; Referring Provider Family Medicine; Visit Provider Nurse Practitioner Adult Health | DX: G30.9 Alzheimer's disease, unspecified (principal); F02.80 Dementia in other diseases classified elsewhere, unspecified severity, without behavioral disturbance, psychotic disturbance, mood disturbance, and anxiety | CPT/HCPCS: 99215 ==

== ENCOUNTER → 2025-02-18 10:24 | Outpatient (BNVA) | payer MEDICARE, OTHER, SELFPAY | PROVIDERS: PCP Family Medicine; Referring Provider Family Medicine; Visit Provider Nurse Practitioner Adult Health | DX: G30.9 Alzheimer's disease, unspecified (principal); F02.80 Dementia in other diseases classified elsewhere, unspecified severity, without behavioral disturbance, psychotic disturbance, mood disturbance, and anxiety | CPT/HCPCS: 99215 ==

== ENCOUNTER → 2025-03-26 13:53 | Outpatient (BNVA) | payer MEDICARE, OTHER, SELFPAY | PROVIDERS: PCP Family Medicine; Referring Provider Family Medicine; Visit Provider Podiatrist | DX: L60.3 Nail dystrophy (principal); B35.1 Tinea unguium | CPT/HCPCS: 99213 ==

== ENCOUNTER 2025-04-11 04:16 | Outpatient (CLI) | payer MEDICARE, OTHER, SELFPAY ==
--- NOTE | 2025-04-11 | DI.DEXA_ITS ---
Exam(s) XR DEXA BONE DENSITY W/WO NIKUNJ EXAM: XR DEXA BONE DENSITY W/WO NIKUNJ CLINICAL HISTORY: OSTEOPOROSIS M81.0 TECHNIQUE: MusicXray C densitometer analysis of left hip, lumbar spine and right forearm. Lateral survey image of the thoracic and lumbar spine. COMPARISON: DX DEXA BONE DENSITY WITH NIKUNJ from 08/23/2017 CR XR DEXA BONE DENSITY W/WO NIKUNJ from 10/01/2021 CR XR CHEST 2V PA LATERAL from 04/19/[address] NECK CHEST W from 05/29/2024 DEXA bone density with Nikunj 2004 FINDINGS: Lateral view of the thoracic and lumbar spine shows a mild T10 compression fracture. This appears new when compared with prior exams. Bone mineral density measurements of the lumbar spine correspond to a total T- score of -0.2, in the normal range. This represents a 5.9 percent decrease from 2021 and 4.3 percent decrease compared with 2004. Bone mineral density measurements of the left hip correspond to a total T-score of -2.4. This represents a 17.9 percent decrease when compared with 2024 but is not significantly changed from 2021.. The femoral neck T-score is -2.6, in the osteoporotic range.. Theright forearm bone mineral density measurements correspond to a T-score of the distal 3rd of -2.6, in the osteoporotic range. This is not significantly decreased from 2021 but represents a 7 percent decrease when compared with 2017. The forearm was not analyzed in 2004.. IMPRESSION: Normal bone mineral density of the lumbar spine. There is a new T10 mild compression fracture. Osteoporosis of the hip and forearm.
== END 2025-04-11 04:36 ==
LOC: DI 04:16
PROVIDERS: PCP Family Medicine; Visit Provider Family Medicine
DX: M81.0 Age-related osteoporosis without current pathological fracture (principal)
CPT/HCPCS: 77080